=== PATIENT | female | born 2000 | race Caucasian/White ===

== ENCOUNTER → 2020-05-15 06:51 | Outpatient (CLI) | payer BC, SELFPAY ==
[2020-05-15 21:58] LABS: SARS-CoV-2 RNA PCR Negative
== END ==
PROVIDERS: PCP Family Medicine Adolescent Medicine; Visit Provider Family Medicine Adolescent Medicine
DX: R05 Cough (principal); M79.10 Myalgia, unspecified site; Z20.822 Contact with and (suspected) exposure to COVID-19
CPT/HCPCS: C9803; U0003; U0005

== ENCOUNTER 2023-03-21 17:42 | Emergency (ER) | payer OTHER, SELFPAY ==
[2023-03-21 17:54] VITALS: BP 101/72; PULSE 90; RESP 16; TEMP 36.5; O2SAT 99
--- NOTE | 2023-03-21 17:58 | ED.URI ---
HPI - URI/Sore Throat General Chief Complaint: Upper Respiratory Infection Stated Complaint: Possible Exposure to Covid or Flu Time Seen by Provider: 03/21/23 17:55 Source: patient Mode of arrival: ambulatory Limitations: no limitations History of Present Illness HPI Narrative: Shalini is a 22-year-old female patient presenting to clinic today with complaints possible exposure to flu or COVID. She reports that her boyfriend is being seen in the clinic today and she states that when he gets sick she gets sick. She denies any symptoms currently. Related Data Home Medications Medication Instructions Recorded Confirmed aluminum-mag hydroxide-simethicone 10 ml PO QID PRN 11/26/21 11/26/21 400 mg-400 mg-40 mg/5 mL oral susp (Mylanta Maximum Strength) medroxyprogesterone 150 mg/mL 150 mg IM [id number] 11/26/21 11/26/21 intramuscular syringe sumatriptan succinate 100 mg tablet See Rx Instructions PO .COMPLEX 11/26/21 11/26/21 Allergies Allergy/AdvReac Type Severity Reaction Status Date / Time tomato Allergy Mild Rash Verified 11/26/21 08:54 Review of Systems Review of Systems: Pertinent positives per HPI. Patient denies any fever, chills, rash, headache, visual changes, dizziness, cough, shortness of breath, chest pain, palpitations, nausea, vomiting, diarrhea, constipation, abdominal pain, or any urinary issues. [facility] Surgical History Surgical History Hx of appendectomy Hx of colonoscopy 2019 Family History Family History Sibling Pre-diabetes Social History Social History Smoking status: Never smoker Second hand tobacco smoke exposure: No Alcohol intake: current Alcohol use details: Rarely Substance use: never Substance use type: does not use Living arrangements: with roommate(s) Occupation/Education: occupation Gender identity (if verbalized by the patient): Female Sexual Orientation (if Verbalized by the Patient): Straight or Heterosexual Spiritual care concerns: No Agree to blood products: Yes Comments At the time of my signature, I reviewed and agree with the nursing past medical, surgical, social, and family history. There is no relevant family history pertinent to the patient complaint. Exam Narrative: General: Well-developed, well nourished, in no apparent distress Head: Normocephalic, atraumatic Eyes: Pupils equally round and reactive to light bilaterally, EOM intact, sclera and conjunctive clear, no discharge, lids normal Ears: TMs intact and clear, ear canals clear, no drainage, grossly hearing normal. Nose: Nares patent, no discharge, no inflammation, no sinus tenderness. Mouth: Oral pharynx without lesions or masses, good dentition, MMM. Neck: Supple, trachea midline, no enlargement of anterior or posterior cervical nodes, no thyroid masses or goiter palpable. Cardio: Regular rate and rhythm, s1 and s2 normal, no murmur appreciated. Resp: Clear to auscultation bilaterally, no rhonchi, rales, wheezing or rubs Course Course Emergency Course: Portions of this record may have been created with voice recognition software. Level of Care: Express Care Visit Vital Signs Vital signs: Vital Signs Temperature 36.5 C 03/21/23 17:54 Pulse Rate 90 03/21/23 17:54 Respiratory Rate 16 03/21/23 17:54 Blood Pressure 101/72 03/21/23 17:54 Pulse Oximetry 99 03/21/23 17:54 Temperature 36.5 C 03/21/23 17:54 Pulse Rate 90 03/21/23 17:54 Respiratory Rate 16 03/21/23 17:54 Blood Pressure 101/72 03/21/23 17:54 Pulse Oximetry 99 03/21/23 17:54 Vital signs reviewed MDM - URI/Sore Throat MDM Narrative Medical decision making narrative: At the time of visit patient is resting comfortably on the exam table. Patient appears to be nontoxic. Supportive me
== END 2023-03-21 18:06 | disposition home or self-care (01) ==
PROVIDERS: Emergency Provider Nurse Practitioner Family; PCP Family Medicine Adolescent Medicine
DX: Z20.822 Contact with and (suspected) exposure to COVID-19 (principal); Z20.828 Contact with and (suspected) exposure to other viral communicable diseases
CPT/HCPCS: 99211; G0463